=== PATIENT | female | born 1990 | race African-American/Black ===

== ENCOUNTER 2017-08-16 16:03 | Outpatient (CLI) | payer OTHER | END 2017-08-16 16:15 | disposition home or self-care (01) | LOC: RAD 16:03 | DX: M54.9 Dorsalgia, unspecified (principal) ==

== ENCOUNTER → 2017-08-16 | Outpatient (CLI) | payer OTHER ==
[~2017-08-16] VITALS: Ht 152.4 cm; Wt 117.9 kg
[~2017-08-16] MED LIST: CEFTIN250 MG PO; CYCLOBENZAPRINE10 MG PO; DICLOFENAC SODI75 MG PO; GILTUSS TR TAB1 EACH PO; MIRALAX510 GM PO; SURFAK240 MG NGT; ZITHROMAX TRI-500 MG PO; ZYRTEC10 MG PO
== END | disposition home or self-care (01) ==
LOC: PPHC 13:36
DX: M54.89 Other dorsalgia (principal)

== ENCOUNTER → 2018-04-10 07:11 | Outpatient (CLI) | payer OTHER | END | disposition home or self-care (01) | LOC: LAB 07:11 | DX: R03.0 Elevated blood-pressure reading, without diagnosis of hypertension (principal); E66.1 Drug-induced obesity; Z13.1 Encounter for screening for diabetes mellitus ==

== ENCOUNTER 2018-07-22 13:56 | Emergency (ER) | payer OTHER ==
[~2018-07-22] VITALS: Ht 167.6 cm; Wt 115.2 kg
== END 2018-07-22 14:38 | disposition home or self-care (01) ==
LOC: ER 13:56
DX: G24.3 Spasmodic torticollis (principal)

== ENCOUNTER 2018-08-15 15:32 | Outpatient (CLI) | payer OTHER | END 2018-08-15 15:39 | disposition home or self-care (01) | LOC: LAB 15:32 | DX: N91.0 Primary amenorrhea (principal); Z32.00 Encounter for pregnancy test, result unknown ==

== ENCOUNTER 2019-01-16 15:21 | Outpatient (CLI) | payer OTHER | END 2019-01-16 15:27 | disposition home or self-care (01) | LOC: LAB 15:21 | DX: J11.81 Influenza due to unidentified influenza virus with encephalopathy (principal); J06.9 Acute upper respiratory infection, unspecified ==

== ENCOUNTER → 2019-04-07 07:11 | Outpatient (CLI) | payer OTHER | END | disposition home or self-care (01) | LOC: LAB 07:11 | DX: N39.0 Urinary tract infection, site not specified (principal) ==

== ENCOUNTER 2019-04-07 07:38 | Outpatient (CLI) | payer OTHER | END 2019-04-07 07:41 | disposition home or self-care (01) | LOC: SONOGRAMA 07:38 | DX: R10.30 Lower abdominal pain, unspecified (principal) ==

== ENCOUNTER 2019-05-30 07:23 | Outpatient (CLI) | payer OTHER | END 2019-05-30 07:36 | disposition home or self-care (01) | LOC: LAB 07:23 → MAMO-SONO 09:15 | DX: E78.49 Other hyperlipidemia (principal); E55.9 Vitamin D deficiency, unspecified; R42 Dizziness and giddiness; Z00.00 Encounter for general adult medical examination without abnormal findings; N83.00 Follicular cyst of ovary, unspecified side ==

== ENCOUNTER 2019-05-30 08:16 | Outpatient (CLI) | payer OTHER | END 2019-05-30 08:27 | disposition home or self-care (01) | LOC: SONOGRAMA 08:16 | DX: N83.00 Follicular cyst of ovary, unspecified side (principal) ==

== ENCOUNTER 2019-07-28 16:30 | Outpatient (CLI) | payer OTHER | END 2019-07-28 18:40 | disposition home or self-care (01) | LOC: LAB 16:30 | DX: J11.1 Influenza due to unidentified influenza virus with other respiratory manifestations (principal) ==

== ENCOUNTER → 2019-11-04 | Outpatient (CLI) | payer OTHER | END | disposition home or self-care (01) | LOC: RX STUDY 10:18 | DX: N83.292 Other ovarian cyst, left side (principal) ==

== ENCOUNTER → 2020-03-01 08:00 | Outpatient (CLI) | payer OTHER | END | disposition home or self-care (01) | LOC: PPH VACUNA 08:00 | DX: Z23 Encounter for immunization (principal) ==

== ENCOUNTER 2020-08-01 07:16 | Outpatient (CLI) | payer OTHER | END 2020-08-01 07:21 | disposition home or self-care (01) | LOC: LAB 07:16 | PROVIDERS: ATTEND Obstetrics & Gynecology | DX: E28.8 Other ovarian dysfunction (principal); N95.1 Menopausal and female climacteric states; E04.1 Nontoxic single thyroid nodule; E55.9 Vitamin D deficiency, unspecified; E78.00 Pure hypercholesterolemia, unspecified ==

== ENCOUNTER 2021-03-21 08:00 | Outpatient (CLI) | payer OTHER | END 2021-03-21 08:30 | disposition home or self-care (01) | LOC: PPH VACUNA 08:00 | PROVIDERS: ATTEND Emergency Medicine Pediatric Emergency Medicine | DX: Z23 Encounter for immunization (principal) ==

== ENCOUNTER 2021-04-20 12:55 | Outpatient (CLI) | payer OTHER | END 2021-04-20 13:15 | disposition home or self-care (01) | LOC: PPH VACUNA 12:55 | PROVIDERS: ATTEND Emergency Medicine Pediatric Emergency Medicine | DX: Z23 Encounter for immunization (principal) ==

== ENCOUNTER 2021-06-20 08:34 | Outpatient (CLI) | payer OTHER | END 2021-06-20 08:35 | disposition home or self-care (01) | LOC: LAB 08:34 | PROVIDERS: ATTEND Preventive Medicine Occupational Medicine | DX: Z20.828 Contact with and (suspected) exposure to other viral communicable diseases (principal) ==

== ENCOUNTER → 2021-08-28 07:14 | Outpatient (CLI) | payer OTHER ==
[~2021-08-28 07:14] MED LIST changes: +DICLOFENAC POTA50 MG PO; +SKELAXIN800 MG PO
== END | disposition home or self-care (01) ==
LOC: LAB 07:14
PROVIDERS: ATTEND Obstetrics & Gynecology
DX: N95.1 Menopausal and female climacteric states (principal); E28.39 Other primary ovarian failure; E04.1 Nontoxic single thyroid nodule; E55.9 Vitamin D deficiency, unspecified; E78.00 Pure hypercholesterolemia, unspecified; E08.00 Diabetes mellitus due to underlying condition with hyperosmolarity without nonketotic hyperglycemic-hyperosmolar coma (NKHHC)

== ENCOUNTER 2021-10-03 11:00 | Outpatient (CLI) | payer OTHER | END 2021-10-03 14:18 | disposition home or self-care (01) | LOC: RAD 11:00 | PROVIDERS: ATTEND Physical Medicine & Rehabilitation | DX: M54.50 Low back pain, unspecified (principal); M54.6 Pain in thoracic spine; M54.2 Cervicalgia ==

== ENCOUNTER 2022-02-14 10:30 | Outpatient (CLI) | payer OTHER | END 2022-02-14 10:35 | disposition home or self-care (01) | LOC: PPH VACUNA 10:30 | PROVIDERS: ATTEND Emergency Medicine Pediatric Emergency Medicine | DX: Z23 Encounter for immunization (principal) ==

== ENCOUNTER 2025-02-24 06:27 | Emergency (ER) | payer OTHER ==
[~2025-02-24] VITALS: Ht 167.6 cm; Wt 108.9 kg
[2025-02-24 06:35] VITALS: BP 120/86; O2SAT 100
[2025-02-24] MEDS ORDERED: ADIPEX-P37.5 M1 (06:35)
[2025-02-24 08:18] LABS: BASO % 0.6 % (0.1-1.2); EOS # 0.04 (0.04-0.54); EOS % 0.6 % (0.7-7.0); LYMPH # 1.86 (1.18-3.74); LYMPH % 28.5 % (19.3-53.1); MEAN PLATELET VOLUME 10.90 fl (9.4-12.4); MONO # 0.38 (0.24-0.82); MONO % 5.8 % (4.7-12.5); NEUT # 4.18 (1.56-6.13); NEUT % 64.2 % (34.0-71.1); RED CELL DISTRIBUTION WIDTH 15.6 % (11.6-14.4)
[2025-02-24 08:52] LABS: INR 0.97
[2025-02-24 08:56] LABS: BUN CREA RATIO 11 (7.0-25.0); CREATININE SERUM 0.92 mg/dL (0.55-1.02); GFR 69.47; GLUCOSE FASTING 85 mg/dL (65-100); OSMOLALITY SERUM 280 MOSM/KG (275-295)
[2025-02-24 08:58] LABS: HCG QUANTITATIVE < 1 mUI/mL (1-3)
[2025-02-24] MEDS ORDERED: NORFLEX100MG PO (10:43)
== END 2025-02-24 11:09 | disposition home or self-care (01) ==
LOC: ER 06:27
PROVIDERS: General Practice
DX: N83.209 Unspecified ovarian cyst, unspecified side (principal); N93.9 Abnormal uterine and vaginal bleeding, unspecified